=== PATIENT | female | born 1955 | race Caucasian/White ===

== ENCOUNTER 2020-10-20 12:40 | Emergency (ER) | payer OTHER ==
[~2020-10-20 12:40] MED LIST: ASPIR-TRIN325 MG PO; ASPIRIN EC325 MG PO; GLUCOPHAGE 500500 MG PO; LIPITOR TAB 2020 MG PO; NITROSTAT0.4 MG SL
[2020-10-20 13:25] LABS: HEMOGLOBIN 13.7 gm/dl (12.3-15.3); RED BLOOD COUNT 4.69 M/UL (4.00-5.10); WHITE BLOOD COUNT 7.1 K/UL (4.5-11.0)
[2020-10-20 13:45] LABS: BUN/CREATININE RATIO 16 (0-10)
[2020-10-20] MEDS ORDERED: TORADOL 10 MG T10 MG PO (16:19)
[2020-10-20] MEDS ORDERED: FLAGYL500 MG PO (16:19)
[2020-10-20] MEDS ORDERED: CIPRO500 MG PO (16:19)
[2020-10-20] MEDS ORDERED: ONDANSETRON ODT4 MG SL (16:19)
== END 2020-10-20 16:42 | disposition home or self-care (01) ==
LOC: ER1 12:40
PROVIDERS: Physician Assistant
DX: K57.32 Diverticulitis of large intestine without perforation or abscess without bleeding (principal); E11.9 Type 2 diabetes mellitus without complications; I25.2 Old myocardial infarction; I11.0 Hypertensive heart disease with heart failure; I50.9 Heart failure, unspecified; Z87.442 Personal history of urinary calculi; Z90.710 Acquired absence of both cervix and uterus; Z95.5 Presence of coronary angioplasty implant and graft; Z90.49 Acquired absence of other specified parts of digestive tract
CPT/HCPCS: 80053; 81001; 83690; 85025; 96374; 96375; 99284; J1885; J2405; J7030

== ENCOUNTER 2021-01-28 14:04 | Emergency (ER) | payer OTHER ==
[~2021-01-28] VITALS: Ht 175.3 cm; Wt 104.3 kg
[~2021-01-28 14:04] MED LIST changes: +CIPRO500 MG PO; +FLAGYL500 MG PO; +ONDANSETRON ODT4 MG SL; +TORADOL 10 MG T10 MG PO
== END 2021-01-28 16:30 | disposition home or self-care (01) ==
LOC: ER1 14:04
DX: Z23 Encounter for immunization (principal); U07.1 COVID-19; E11.9 Type 2 diabetes mellitus without complications; I51.9 Heart disease, unspecified; Z90.49 Acquired absence of other specified parts of digestive tract; Z90.710 Acquired absence of both cervix and uterus
CPT/HCPCS: 99283; M0243